=== PATIENT | female | born 1990 | race Caucasian/White ===

== ENCOUNTER 2016-11-02 20:04 | Observation (INO) | payer OTHER ==
[2016-11-02 22:12] LABS: HEMOGLOBIN 13.7 gm/dl (12.3-15.3); RED BLOOD COUNT 4.37 M/UL (4.00-5.10); WHITE BLOOD COUNT 10.7 K/UL (4.5-11.0)
[2016-11-02 22:40] LABS: BUN/CREATININE RATIO 7 (0-10)
[2016-11-03 05:08] LABS: HEMOGLOBIN 12.6 gm/dl (12.3-15.3); RED BLOOD COUNT 4.03 M/UL (4.00-5.10); WHITE BLOOD COUNT 10.1 K/UL (4.5-11.0)
[2016-11-03 05:37] LABS: BUN/CREATININE RATIO 8 (0-10)
== END 2016-11-03 12:59 | disposition home or self-care (01) ==
LOC: ER1 20:04 → ZEROF 11-03 01:10 → OB 11-03 04:05
PROVIDERS: Physician Assistant; ADMIT Obstetrics & Gynecology
PROC: 10D17ZZ Extraction of Products of Conception, Retained, Via Natural or Artificial Opening (ICD-10-PCS; principal; 2016-11-02)
DX: O03.4 Incomplete spontaneous abortion without complication (principal); K21.9 Gastro-esophageal reflux disease without esophagitis; Z79.899 Other long term (current) drug therapy; Z90.49 Acquired absence of other specified parts of digestive tract
CPT/HCPCS: 36415; 76817; 76830; 80048; 80053; 81001; 84702; 85025; 86900; 86901; 87086; 96360; 96361; 96374; 99285; G0378; J1100; J2250; J2270; J2405; J2765; J2795; J3010; J7120

== ENCOUNTER 2021-10-20 04:54 | Emergency (ER) | payer OTHER ==
[~2021-10-20 04:54] MED LIST: BACTRIM DS TAB1 EACH PO; BENTYL 20MG TAB20 MG PO; COLACE 100MG C100 MG PO; FIORICET TAB1 EA PO; IBUPROFEN600 MG PO; IBUPROFEN800 MG PO; LODINE CAP 300300 MG PO; NORCO 5-325 TA1 EACH PO; ONDANSETRON ODT4 MG PO; PHENERGAN 12.12.5 M1 PO; PRENATAL + DHA1 EAC1 PO; PRENATAL VITAM1 EAC3 PO; XOFLUZA40 MG PO; ZANTAC 7575 MG PO; ZOFRAN ODT 4 MG4 MG PO; ZOFRAN4 MG PO
== END 2021-10-20 07:15 | disposition home or self-care (01) ==
LOC: ER1 04:54
DX: S16.1XXA Strain of muscle, fascia and tendon at neck level, initial encounter (principal); X58.XXXA Exposure to other specified factors, initial encounter
CPT/HCPCS: 72040; 99283